=== PATIENT | male | born 1970 | race Two or more races ===

== ENCOUNTER 2019-11-29 21:39 | Emergency (ER) | payer SELFPAY ==
[~2019-11-29] VITALS: Ht 170.2 cm; Wt 88.5 kg
[2019-11-30 01:28] VITALS: BP 136/83
== END 2019-11-29 22:02 ==
LOC: ER 21:40
DX: I10 Essential (primary) hypertension; V89.2XXA Person injured in unspecified motor-vehicle accident, traffic, initial encounter; Y93.89 Activity, other specified; Y92.89 Other specified places as the place of occurrence of the external cause; Y99.8 Other external cause status